=== PATIENT | female | born 1955 | race Caucasian/White ===

== ENCOUNTER → 2019-09-28 | Outpatient (CLI) | payer MEDICARE | END | disposition home or self-care (01) | LOC: RADPV 10:02 | PROVIDERS: ATTEND Internal Medicine Nephrology | DX: I12.9 Hypertensive chronic kidney disease with stage 1 through stage 4 chronic kidney disease, or unspecified chronic kidney disease (principal); N18.9 Chronic kidney disease, unspecified | CPT/HCPCS: 76770 ==

== ENCOUNTER 2021-08-23 12:41 | Emergency (ER) | payer MEDICARE, MEDICAID ==
[~2021-08-23] VITALS: Ht 160 cm; Wt 56.8 kg
[2021-08-23] MEDS ORDERED: AMLO-257 PO (12:58)
[2021-08-23] MEDS ORDERED: LOSA50TA37 PO (12:58)
[2021-08-23] MEDS ORDERED: COLC0.6T73 PO (12:58)
[2021-08-23] MEDS ORDERED: ATOR40TA28 PO (12:58)
[2021-08-23] MEDS ORDERED: ALLO100T2 PO (12:58)
[2021-08-23 16:47] VITALS: BP 133/70
== END 2021-08-23 16:48 | disposition home or self-care (01) ==
LOC: EMS 12:46
DX: S92.062A Displaced intraarticular fracture of left calcaneus, initial encounter for closed fracture (principal); E78.00 Pure hypercholesterolemia, unspecified; I10 Essential (primary) hypertension; X50.1XXA Overexertion from prolonged static or awkward postures, initial encounter; Y93.89 Activity, other specified; Y92.89 Other specified places as the place of occurrence of the external cause; Y99.8 Other external cause status
CPT/HCPCS: 29515; 71046; 99284